=== PATIENT | male | born 1965 | race Caucasian/White ===

== ENCOUNTER 2018-03-10 09:20 | Emergency (ER) | payer MEDICAID ==
[~2018-03-10] VITALS: Ht 167.6 cm; Wt 72.1 kg
[2018-03-10 09:21] VITALS: BP 107/75; Ht 167.6 cm; Wt 72.1 kg
== END 2018-03-10 10:02 | disposition home or self-care (01) ==
LOC: ED 09:20
DX: J06.9 Acute upper respiratory infection, unspecified (principal); E11.9 Type 2 diabetes mellitus without complications; Z88.0 Allergy status to penicillin

== ENCOUNTER → 2018-03-10 | Emergency (ER) | payer OTHER ==
[~2018-03-10] MED LIST: AUGMENTIN1 TA1 PO; FLO4 PO; GLU500; LAC PO; METFORMIN HCL850 MG PO; ZES5 PO
== END | disposition home or self-care (01) ==
LOC: ED 09:07
DX: J06.9 Acute upper respiratory infection, unspecified (principal)

== ENCOUNTER 2018-08-19 10:41 | Emergency (ER) | payer OTHER ==
[~2018-08-19] VITALS: Ht 167.6 cm; Wt 82.6 kg
[2018-08-19 11:06] VITALS: BP 144/71
== END 2018-08-19 11:06 | disposition home or self-care (01) ==
LOC: ED 10:41
DX: R19.7 Diarrhea, unspecified (principal); I10 Essential (primary) hypertension; E11.9 Type 2 diabetes mellitus without complications; Z88.0 Allergy status to penicillin; Z87.442 Personal history of urinary calculi; Z98.890 Other specified postprocedural states; Z96.0 Presence of urogenital implants
CPT/HCPCS: 82962

== ENCOUNTER 2020-08-26 18:23 | Emergency (ER) | payer OTHER, SELFPAY ==
[~2020-08-26] VITALS: Ht 167.6 cm; Wt 88.5 kg
[2020-08-26 18:25] VITALS: Ht 167.6 cm; Wt 88.5 kg
[2020-08-26 21:27] VITALS: BP 132/79
== END 2020-08-26 21:27 | disposition home or self-care (01) ==
LOC: ED 18:23
DX: U07.1 COVID-19 (principal); J12.89 Other viral pneumonia; I10 Essential (primary) hypertension; E11.9 Type 2 diabetes mellitus without complications; Z88.0 Allergy status to penicillin; Z87.442 Personal history of urinary calculi
CPT/HCPCS: U0003